=== PATIENT | female | born 1975 | race Caucasian/White ===

== ENCOUNTER 2019-06-12 18:41 | Inpatient (IN) | payer MEDICARE, MEDICAID ==
[2019-06-12] MEDS ORDERED: ONDANSETRON HCL INJ/PF 4 MG/2 ML SDV IV ONE (20:34)
[2019-06-12] MEDS ORDERED: NORMAL SALINE 1000 ML 1,000 ML IV ONE ×3 (20:34→22:51)
[2019-06-12 20:36] LABS: ALBUMIN 4.5 g/dL (3.5-5.0); ALKALINE PHOSPHATASE 147 U/L (38-126); ASPARTATE AMINO TRANSFERASE 33 U/L (14-36); BILIRUBIN,DIRECT 0.4 mg/dL (0.0-0.4); BILIRUBIN,TOTAL 2.4 mg/dL (0.2-1.3); BLOOD UREA NITROGEN 26 mg/dL (7-20); CALCIUM 9.9 mg/dL (8.4-10.2); TOTAL PROTEIN 6.8 g/dL (6.3-8.2)
[2019-06-12 20:38] LABS: HEMATOCRIT 40.7 % (36.0-47.0); HEMOGLOBIN 14.1 g/dL (12.0-15.5); MEAN CORPUSCULAR HEMOGLOBIN 32.4 pg (27.0-33.4); MEAN CORPUSCULAR HGB CONC 34.6 g/dL (32.0-36.0); MEAN CORPUSCULAR VOLUME 94 fl (80-97); PLATELET COUNT 260 10^3/uL (150-450); RED BLOOD COUNT 4.35 10^6/uL (3.72-5.28); RED CELL DISTRIBUTION WIDTH 12.9 % (11.5-14.0); WHITE BLOOD COUNT 26.5 10^3/uL (4.0-10.5)
[2019-06-12 20:42] LABS: CARBON DIOXIDE 11 mmol/L (22-30); CHLORIDE 91 mmol/L (98-107)
[2019-06-12 20:45] LABS: ANION GAP 27 (5-19)
[2019-06-12 20:48] LABS: GLUCOSE 664 mg/dL (75-110); POTASSIUM 6.1 mmol/L (3.6-5.0)
[2019-06-12 21:03] LABS: ABSOLUTE LYMPHOCYTES# (MANUAL) 0.8 10^3/uL (0.5-4.7); ABSOLUTE MONOCYTES # (MANUAL) 1.1 10^3/uL (0.1-1.4); BAND NEUTROPHILS % (MANUAL) 3 % (3-5); BASOPHILS % (MANUAL) 0 % (0-2); EOSINOPHILS % (MANUAL) 0 % (0-6); LYMPHOCYTES % (MANUAL) 2 % (13-45); MONOCYTES % (MANUAL) 4 % (3-13); SEGMENTED NEUTROPHILS % (MAN) 90 % (42-78); TOTAL CELLS COUNTED 100
[2019-06-12 21:05] LABS: BURR CELLS SLIGHT; POIKILOCYTOSIS SLIGHT; TOXIC GRANULATION SLIGHT; TOXIC VACUOLATION PRESENT
[2019-06-12 21:06] LABS: PLATELET COMMENT ADEQUATE; TEAR DROP CELLS SLIGHT
[2019-06-12 22:26] LABS: VENOUS BLOOD BASE EXCESS -19.8 mmol/L; VENOUS BLOOD HCO3 8.5 mmol/L (20-32); VENOUS BLOOD PCO2 28.1 mmHg (35-63)
--- NOTE | 2019-06-12 22:27 | ER Document Report ---
ED General - General Chief Complaint: High Blood Sugar Stated Complaint: NAUSEA,VOMITING,ABDOMINAL PAIN Time Seen by Provider: 06/12/19 22:10 TRAVEL OUTSIDE OF THE [place] IN LAST 30 DAYS: No - HPI Notes: Patient is a 44-year-old female with a history of type 1 diabetes who presents to the emergency department for evaluation of vomiting and increasing blood sugar. She is here from out of town, traveling from the [place] area. She states this morning she started vomiting. Emesis is nonbloody, nonbilious. Her blood sugar started climbing. She started drinking fluids, but it did not seem to help, and she continued to have rising blood sugars. She developed some cramping abdominal pain. All of these are symptoms similar to when she has had DKA in the past. She has an insulin pump, states that seemed to have been functioning normally. She has been in DKA multiple times. - Related Data Allergies/Adverse Reactions: morphine Allergy (Verified 06/12/19 20:13) Home Medications: List reviewed, please see notes Past Medical History - General Information source: Patient - Social History Smoking Status: Never Smoker Chew tobacco use (# tins/day): No Frequency of alcohol use: Social Family History: Reviewed & Not Pertinent Patient has suicidal ideation: No Patient has homicidal ideation: No - Past Medical History Cardiac Medical History: Reports: Hx Hypercholesterolemia, Hx Hypertension Pulmonary Medical History: Reports: Hx Asthma Neurological Medical History: Reports: Hx Seizures, Other - Congenital deafness Endocrine Medical History: Reports: Hx Diabetes Mellitus Type 1 GI Medical History: Reports: Hx Gastritis Psychiatric Medical History: Reports: Hx Depression Past Surgical History: Reports: Hx Appendectomy Review of Systems - Review of Systems Constitutional: No symptoms reported EENT: No symptoms reported Cardiovascular: No symptoms reported Respiratory: No symptoms reported Gastrointestinal: See HPI Genitourinary: No symptoms reported Musculoskeletal: No symptoms reported Skin: No symptoms reported Neurological/Psychological: No symptoms reported Physical Exam - Vital signs Vitals: Temp Pulse Resp BP Pulse Ox 98.1 F 134 H 18 106/73 95 06/12/19 18:53 06/12/19 18:53 06/12/19 18:53 06/12/19 18:53 06/12/19 18:53 - Notes Notes: This is a 44-year-old female who appears her stated age in no acute distress. No Kussmaul respirations. Vital signs reviewed, please refer to chart. Head is normocephalic, atraumatic. Pupils equal round, reactive to light. Neck is supple without meningismus. Heart is tachycardic with normal S1, S2. Lungs are clear to auscultation bilaterally. Abdomen is soft, diffusely tender without rebound or guarding, normoactive bowel sounds throughout. Extremities without cyanosis, clubbing. Posterior calves are nontender. Peripheral pulses are equal . Skin is warm and dry. Patient is awake, alert, neurological exam is nonfocal. Course - Re-evaluation Re-evalutation: 06/12/19 22:27 Patient presents emergency department for evaluation. She laboratory investigations as initially ordered based on protocols. She was found to be acidotic, with a low bicarb, significant anion gap, and elevated blood glucose. She was given further IV fluids. She was started on an insulin drip. Currently, patient's blood pressure is 87/46, heart rate of 118. We will continue to monitor for response. 06/12/19 22:55 Venous pH reveal significant acidosis. The patient is in DKA. Her pressures have been borderline but stable, heart rate is improving. I spoke with Dr. Sanchez about this patient. He agrees with admission. - Vital Signs Vital signs: Temp Pulse Resp BP Pulse Ox 98.1 F 134 H 18 106/73 95 06/12/19 18:53 06/12/19 18:53 06/12/19 18:53 06/12/19 18:53 06/12/19 18:53 - Laboratory Result Diagrams: 06/12/19 20:08 06/12/19 20:08 Laboratory results interpreted by me: 06/12/19 06/12/19 06/12/19 20:08 20:08 22:17 WBC 26.5 H Seg Neuts % (Manual) 90 H Lymphocytes % (Manual) 2 L Abs Neuts (Manual) 24.6 H VBG pH 7.10 L* VBG pCO2 28.1 L VBG HCO3 8.5 L Sodium 129.2 L Potassium 6.1 H* Chloride 91 L Carbon Dioxide 11 L Anion Gap 27 H BUN 26 H Creatinine 1.34 H Est GFR ( Amer) 52 L Est GFR (MDRD) Non-Af 43 L Glucose 664 H* Total Bilirubin 2.4 H Alkaline Phosphatase 147 H Discharge - Discharge Clinical Impression: DKA, type 1 Qualifiers: Diabetes mellitus complication detail: without coma Qualified Code(s): E10.10 - Type 1 diabetes mellitus with ketoacidosis without coma Condition: Stable Disposition: HOME, SELF-CARE Admitting Provider: Daniel (Hospitalist) Unit Admitted: [facility]
[2019-06-12 22:32] LABS: VENOUS BLOOD PH 7.1 (7.30-7.42)
--- NOTE | 2019-06-12 22:51 | EKG REPORT ---
SEVERITY:- BORDERLINE ECG - SINUS TACHYCARDIA IVCD, NONSPECIFIC : Confirmed by: Shailesh Gutierrez MD 12-Jun-2019 22:51:27
[2019-06-12] MEDS ORDERED: NORMAL SALINE 100 ML with INSULIN REGULAR, HUMAN 100 UNIT IV PRN ×2 (22:55)
[2019-06-12] MEDS ORDERED: DEXTROSE 40% GEL 15 GM TUBE PO PRN ×2 (22:55)
[2019-06-12] MEDS ORDERED: GLUCAGON,HUMAN RECOMB 1 MG INJ IM PRN (22:55)
[2019-06-12] MEDS ORDERED: DEXTROSE 50%-WATER 25 GM/50 ML DISP.SYRIN IV PRN ×2 (22:55)
[2019-06-12] MEDS: INSULIN REG, HUMAN 100 UNIT/ML 3 ML VIAL (PYX) IV ONE ×2 (23:17→23:22)
[2019-06-12] MEDS ORDERED: PROMETHAZINE HCL INJ 25 MG/1 ML VIAL IV PRN (23:19)
[2019-06-12] MEDS ORDERED: MAGNESIUM HYDROXIDE SUSP 30 ML UDCUP PO PRN (23:19)
[2019-06-12] MEDS ORDERED: MAG HYDROX/AL HYDROX/SIMETH SUSP 30 ML UDCUP PO PRN (23:19)
[2019-06-12] MEDS ORDERED: LORAZEPAM INJ 2 MG/1 ML VIAL IV PRN (23:24)
[2019-06-12] MEDS ORDERED: ACETAMINOPHEN 325 MG TABLET PO PRN (23:24)
[2019-06-12] MEDS ORDERED: MELATONIN 5 MG TABLET PO PRN (23:24)
[2019-06-12] MEDS ORDERED: DIAZEPAM INJ 10 MG/2 ML DISP.SYRIN IV PRN (23:28)
[2019-06-13 00:12] LABS: APPEARANCE,URINE CLEAR; BILIRUBIN,URINE NEGATIVE (NEGATIVE); COLOR,URINE YELLOW; GLUCOSE, URINE >=500 mg/dL (NEGATIVE); KETONES,URINE 80 mg/dL (NEGATIVE); LEUKOCYTE ESTERASE,URINE NEGATIVE (NEGATIVE); NITRITE,URINE NEGATIVE (NEGATIVE); PROTEIN,URINE 30 mg/dL (NEGATIVE); URINE SPECIFIC GRAVITY 1.016; UROBILINOGEN,URINE NEGATIVE mg/dL (<2.0)
[2019-06-13] MEDS: NORMAL SALINE 100 ML with INSULIN REGULAR, HUMAN 100 UNIT IV PRN ×4 (00:20→06:16)
[2019-06-13 00:38] LABS: BLOOD UREA NITROGEN 27 mg/dL (7-20)
[2019-06-13 00:43] LABS: CHLORIDE 95 mmol/L (98-107)
[2019-06-13 00:53] LABS: ANION GAP 28 (5-19); POTASSIUM 4.8 mmol/L (3.6-5.0)
[2019-06-13 00:57] LABS: CARBON DIOXIDE 8 mmol/L (22-30); GLUCOSE 579 mg/dL (75-110)
[2019-06-13] MEDS ORDERED: SODIUM BICARBONATE 8.4% INJ 50 MEQ/50 ML DISP.SYRIN ONE ×5 (01:04→04:31)
[2019-06-13] MEDS: RINGERS SOLUTION,LACTATED 1,000 ML IV PRN ×3 (01:24→06:42)
[2019-06-13] MEDS: DEXTROSE 5%-WATER 1000 ML 1,000 ML with SODIUM BICARBONATE 150 MEQ IV PRN ×6 (01:24→06:42)
[2019-06-13] MEDS ORDERED: INFLUENZA QUAD (6MOS+) 2019-20 VAC 0.5 ML SYR IM ONE (01:30)
--- NOTE | 2019-06-13 03:12 | PDOC H&P ---
History of Present Illness Admission Date/PCP: 06/12/2019 22:54 No local PCP Patient complains of: Vomiting History of Present Illness: LORRAINE DIANE is a 44 year old female who presented to the emergency room with acute vomiting. The patient admits developing severe nausea and vomiting this morning, that has persisted throughout the day and has been accompanied by intermittent crampy abdominal pains and associated with persistent rising of her blood sugar. Patient attempted to drink fluids to try to help decrease her blood sugar and keep her from going into diabetic ketoacidosis however she noted that despite her efforts drinking fluids her blood sugar continued to rise. She denies other associated or accompanying signs and symptoms. She has a type I diabetic and uses an insulin pump for her diabetic control. She admits numerous prior similar episodes with DKA. She has not identified any aggravating or ameliorating factors for her vomiting. In the emergency room she was found to have diabetic ketoacidosis with a glucose of 664 a bicarbonate of 11 and anion gap of 27 and a venous pH of 7.10. She was also noted to be tachycardic in the 140s and mildly hypotensive in the 80s and 90s. She was treated with IV fluids and demonstrated significant improvement with her tachycardia reduced to the 120 level and her blood pressure running in the high 90s. She was subsequently admitted to the hospital for further evaluation and treatment. Past Medical History Cardiac Medical History: Reports: Hyperlipidema, Hypertension Denies: Coronary Artery Disease, Myocardial Infarction Pulmonary Medical History: Reports: Asthma Denies: Chronic Obstructive Pulmonary Disease (COPD) EENT Medical History: Reports: Eyes - required childhood eye surgeries, Ears - Congenital deafness Denies: Cataracts Neurological Medical History: Reports: Seizures - Seizure disorder, Other - Congenital deafness Endocrine Medical History: Reports: Diabetes Mellitus Type 1 Denies: Diabetes Mellitus Type 2, Hyperthyroidism, Hypothyroidism, Obesity Renal/ Medical History: Denies: Chronic Kidney Disease, Nephrolithiasis Malignancy Medical History: Reports: None GI Medical History: Denies: Cirrhosis, Crohn's Disease, Hepatitis, Ulcerative Colitis Musculoskeltal Medical History: Denies: Arthritis, Gout Skin Medical History: Denies: Eczema, Psoriasis Psychiatric Medical History: Reports: Depression Denies: Alcohol Dependency, Substance Abuse, Tobacco Dependency Traumatic Medical History: Reports: None Hematology: Denies: Anemia, Bleeding Tendencies Infectious Medical History: Reports: None Past Surgical History Past Surgical History: Reports: Appendectomy, Orthopedic Surgery - discectomy, Other - childhood eye surgeries, lumpectomy, EGD's Social History Information Source: Patient Lives with: Alone Smoking Status: Never Smoker Electronic Cigarette use?: No Frequency of Alcohol Use: Rare Hx Recreational Drug Use: No Drugs: None Hx Prescription Drug Abuse: No - Advance Directive Resuscitation Status: Full Code Surrogate healthcare decision maker:: Lola Rollins Family History Family History: Malignancy - Breast cancer. denies: CAD, DM, Hypertension Parental Family History Reviewed: Yes Children Family History Reviewed: No Sibling(s) Family History Reviewed.: Yes Medication/Allergy Allergies/Adverse Reactions: morphine Allergy (Verified 06/12/19 20:13) Review of Systems Constitutional: ABSENT: chills, fever(s) Eyes: ABSENT: visual disturbances, other - Eye pain Ears: ABSENT: hearing changes, other - Ear pain Nose, Mouth, and Throat: ABSENT: headache(s), mouth pain, sore throat Cardiovascular: ABSENT: chest pain, palpitations Respiratory: ABSENT: cough, dyspnea Gastrointestinal: PRESENT: as per HPI, abdominal pain, nausea, vomiting. ABSENT: constipation, diarrhea, hematemesis Genitourinary: ABSENT: dysuria, hematuria Musculoskeletal: ABSENT: back pain, joint swelling, muscle weakness Integumentary: ABSENT: pruritus, rash Neurological: ABSENT: confusion, convulsions, focal weakness, memory loss, syncope Psychiatric: ABSENT: anxiety, depression Endocrine: ABSENT: cold intolerance, heat intolerance, polydipsia, polyphagia, polyuria Hematologic/Lymphatic: ABSENT: easy bleeding, easy bruising Allergic/Immunologic: ABSENT: seasonal rhinorrhea Physical Exam Vital Signs: Temp Pulse Resp BP Pulse Ox 98.1 F 134 H 18 106/73 95 06/12/19 18:53 06/12/19 18:53 06/12/19 18:53 06/12/19 18:53 06/12/19 18:53 Intake & Output 06/10/19 06/11/19 06/12/19 23:59 23:59 23:59 Intake Total 1000 Balance 1000 Weight 56.9 kg General appearance: PRESENT: no acute distress, cooperative Head exam: PRESENT: atraumatic, normocephalic Eye exam: PRESENT: conjunctiva pink. ABSENT: conjunctival injection, scleral icterus Ear exam: PRESENT: normal external ear exam. ABSENT: bleeding, drainage Mouth exam: PRESENT: dry mucosa, neck supple Neck exam: ABSENT: thyromegaly, tracheal deviation Respiratory exam: PRESENT: clear to auscultation chloe, symmetrical, unlabored Cardiovascular exam: PRESENT: RRR, tachycardia. ABSENT: clicks, gallop, rubs Pulses: PRESENT: normal radial pulses, normal dorsalis pedis pul Vascular exam: PRESENT: normal capillary refill. ABSENT: pallor GI/Abdominal exam: PRESENT: normal bowel sounds, soft Rectal exam: PRESENT: deferred Extremities exam: ABSENT: joint swelling, pedal edema Musculoskeletal exam: ABSENT: deformity, dislocation Neurological exam: PRESENT: alert, oriented to person, oriented to place, oriented to time, oriented to situation, motor sensory deficit - Dependent on hearing aids Psychiatric exam: PRESENT: appropriate affect, normal mood Skin exam: PRESENT: dry, intact, warm. ABSENT: jaundice, rash, urticaria Results Laboratory Results: 06/12/19 20:08 06/12/19 20:08 06/12/19 06/12/19 06/12/19 20:08 20:08 22:17 WBC 26.5 H RBC 4.35 Hgb 14.1 Hct 40.7 MCV 94 MCH 32.4 MCHC 34.6 RDW 12.9 Plt Count 260 Seg Neutrophils % Not Reportable VBG pH 7.10 L* VBG pCO2 28.1 L VBG HCO3 8.5 L VBG Base Excess -19.8 Sodium 129.2 L Potassium 6.1 H* Chloride 91 L Carbon Dioxide 11 L Anion Gap 27 H BUN 26 H Creatinine 1.34 H Est GFR ( Amer) 52 L Glucose 664 H* Calcium 9.9 Total Bilirubin 2.4 H AST 33 Alkaline Phosphatase 147 H Total Protein 6.8 Albumin 4.5 Assessment and Plan - Diagnosis (1) Diabetic ketoacidosis without coma associated with type 1 diabetes mellitus Is this a current diagnosis for this admission?: Yes (2) Hypotension due to hypovolemia Is this a current diagnosis for this admission?: Yes (3) Tachycardia Is this a current diagnosis for this admission?: Yes (4) Nausea & vomiting Qualifiers: Vomiting type: unspecified Vomiting Intractability: non-intractable Qualified Code(s): R11.2 - Nausea with vomiting, unspecified Is this a current diagnosis for this admission?: Yes (5) Seizure disorder Is this a current diagnosis for this admission?: Yes (6) Congenital deafness Is this a current diagnosis for this admission?: Yes - Plan Summary Summary: Patient will be admitted to [facility] where she will receive routine supportive and symptomatic cares. She will be treated with a insulin infusion and a bicarbonate infusion as well as high-volume IV fluids with electrolyte repletion as appropriate. She will use Phenergan 12.5 mg IV every 4 hours as needed for nausea and vomiting. She will use Ativan 1 mg IV every 4 hours as needed for anxiety or restlessness. She will receive a diabetic diet. She will return to use of her insulin pump as per her usual course once her ketoacidosis has resolved. She will be continued on her usual medications as appropriate and per formulary availability. - Time Time Spent with patient: 15-24 minutes Medications reviewed and adjusted accordingly: Yes Anticipated discharge: Home Within: within 48 hours - Inpatient Certification Based on my medical assessment, after consideration of the patient's comorbidities, presenting symptoms, or acuity I expect that the services needed warrant INPATIENT care.: Yes I certify that my determination is in accordance with my understanding of Medicare's requirements for reasonable and necessary INPATIENT services [42 CFR 412.3e].: Yes Medical Necessity: Need Close Monitoring Due to Risk of Patient Decompensation, Need For IV Fluids, Need For Continuous Telemetry Monitoring, Risk of Complication if Not Cared For in Hospital
[2019-06-13] MEDS ORDERED: INSULIN REG, HUMAN 100 UNIT/ML 3 ML VIAL IV ONE (04:00)
[2019-06-13 04:38] LABS: ANION GAP 19 (5-19); BLOOD UREA NITROGEN 26 mg/dL (7-20); CARBON DIOXIDE 16 mmol/L (22-30); CHLORIDE 95 mmol/L (98-107); POTASSIUM 4.3 mmol/L (3.6-5.0)
[2019-06-13 05:00] LABS: GLUCOSE 575 mg/dL (75-110)
[2019-06-13] MEDS: HEPARIN SOD (PORCINE) 5,000 UNIT/ML 1 ML VIAL SUBCUT SCH ×3 (05:08→21:48)
[2019-06-13] MEDS ORDERED: INSULIN REG, HUMAN 100 UNIT/ML 3 ML VIAL (PYX) ONE (06:11)
[2019-06-13 08:05] LABS: HEMATOCRIT 31.4 % (36.0-47.0); MEAN CORPUSCULAR HEMOGLOBIN 32.9 pg (27.0-33.4); PLATELET COUNT 160 10^3/uL (150-450); RED BLOOD COUNT 3.58 10^6/uL (3.72-5.28)
[2019-06-13 08:16] LABS: ANION GAP 6 (5-19); BLOOD UREA NITROGEN 22 mg/dL (7-20); CALCIUM 7.8 mg/dL (8.4-10.2); CHLORIDE 91 mmol/L (98-107)
[2019-06-13 08:22] LABS: MEAN CORPUSCULAR HGB CONC 37.5 g/dL (32.0-36.0); MEAN CORPUSCULAR VOLUME 88 fl (80-97)
[2019-06-13 08:23] LABS: HEMOGLOBIN 11.7 g/dL (12.0-15.5)
[2019-06-13 08:32] LABS: CARBON DIOXIDE 36 mmol/L (22-30); GLUCOSE 399 mg/dL (75-110); POTASSIUM 3.2 mmol/L (3.6-5.0)
[2019-06-13] MEDS: DOCUSATE SODIUM 100 MG CAPSULE PO SCH ×2 (09:47→17:00)
[2019-06-13] MEDS: POTASSI CL 20 MEQ/NS 1L 1000 ML IV PRN ×2 (09:47→17:05)
[2019-06-13] MEDS ORDERED: POTASSIUM CHLORIDE 10 MEQ TABLET.ER PO ONE (12:00)
[2019-06-13] MEDS ORDERED: DEXTROSE 40% GEL 15 GM TUBE PO PRN (12:00)
[2019-06-13] MEDS ORDERED: DEXTROSE 50%-WATER SYRINGE 25 GM/50 ML DOSE IV PRN (12:00)
[2019-06-13] MEDS ORDERED: GLUCAGON,HUMAN RECOMB 1 MG INJ IM PRN (12:00)
[2019-06-13] MEDS ORDERED: DEXTROSE 50%-WATER SYRINGE 12.5 GM/25 ML DOSE IV PRN (12:00)
[2019-06-13] MEDS ORDERED: DEXTROSE 40% GEL 15 GM TUBE X 2 PO PRN (12:00)
[2019-06-13 12:33] LABS: ANION GAP 5 (5-19); BLOOD UREA NITROGEN 18 mg/dL (7-20); CALCIUM 8.4 mg/dL (8.4-10.2); CARBON DIOXIDE 37 mmol/L (22-30); CHLORIDE 96 mmol/L (98-107); GLUCOSE 106 mg/dL (75-110); POTASSIUM 3.1 mmol/L (3.6-5.0)
--- NOTE | 2019-06-13 12:50 | PDOC PROGRESS REPORT ---
Subjective Progress Note for:: 06/13/19 Subjective:: 06/13/2019: Patient seen and examined. She is feeling better. No nausea or vomiting. DKA has resolved. Heart rate is better. Reason For Visit: DIABETIC KETOACIDOSIS Physical Exam Vital Signs: Temp Pulse Resp BP Pulse Ox 98.5 F 102 H 18 94/54 L 93 06/13/19 11:06 06/13/19 11:06 06/13/19 11:06 06/13/19 11:06 06/13/19 11:06 Intake & Output 06/12/19 06/13/19 06/14/19 06:59 06:59 06:59 Intake Total 5942 3210 Output Total 1350 Balance 4592 3210 Weight 131 lb 6.328 oz Exam: Patient is no acute distress Alert oriented to time place person No anxiety or depression Head: atraumatic normocephalic Pupils: are equal reactive Neck: is supple and trachea is central no lymphadenopathy No pharyngeal erythema or exudates Heart: Regular rate and rhythm, no peripheral edema Lungs: clear to auscultation, no respiratory distress Abdomen: nontender nondistended Neurological exam: unremarkable Musculoskeletal: No joint swelling or effusion chronic lower back pain and tenderness No suicidal or homicidal ideation Results Laboratory Results: 06/13/19 07:50 06/13/19 11:41 06/12/19 06/12/19 06/12/19 20:08 20:08 22:17 WBC 26.5 H RBC 4.35 Hgb 14.1 Hct 40.7 MCV 94 MCH 32.4 MCHC 34.6 RDW 12.9 Plt Count 260 Seg Neutrophils % Not Reportable VBG pH 7.10 L* VBG pCO2 28.1 L VBG HCO3 8.5 L VBG Base Excess -19.8 Sodium 129.2 L Potassium 6.1 H* Chloride 91 L Carbon Dioxide 11 L Anion Gap 27 H BUN 26 H Creatinine 1.34 H Est GFR ( Amer) 52 L Glucose 664 H* Calcium 9.9 Magnesium Total Bilirubin 2.4 H AST 33 Alkaline Phosphatase 147 H Total Protein 6.8 Albumin 4.5 TSH Urine Color Urine Appearance Urine pH Ur Specific [place] Urine Protein Urine Glucose (UA) Urine Ketones Urine Blood Urine Nitrite Ur Leukocyte Esterase Urine WBC (Auto) Urine RBC (Auto) 06/12/19 06/12/19 06/13/19 23:25 23:55 03:26 WBC RBC Hgb Hct MCV MCH MCHC RDW Plt Count Seg Neutrophils % VBG pH VBG pCO2 VBG HCO3 VBG Base Excess Sodium 130.9 L 129.9 L Potassium 4.8 D 4.3 Chloride 95 L 95 L Carbon Dioxide 8 L* 16 L Anion Gap 28 H 19 BUN 27 H 26 H Creatinine 1.27 H 1.05 Est GFR ( Amer) 56 L > 60 Glucose 579 H* 575 H* Calcium 9.0 8.0 L Magnesium Total Bilirubin AST Alkaline Phosphatase Total Protein Albumin TSH Urine Color YELLOW Urine Appearance CLEAR Urine pH 5.0 Ur Specific [place] 1.016 Urine Protein 30 H Urine Glucose (UA) >=500 H Urine Ketones 80 H Urine Blood MODERATE H Urine Nitrite NEGATIVE Ur Leukocyte Esterase NEGATIVE Urine WBC (Auto) 2 Urine RBC (Auto) 0 06/13/19 06/13/19 06/13/19 07:50 07:50 07:50 WBC 15.0 H RBC 3.58 L Hgb 11.7 L D Hct 31.4 L MCV 88 D MCH 32.9 MCHC 37.5 H RDW 13.0 Plt Count 160 Seg Neutrophils % VBG pH VBG pCO2 VBG HCO3 VBG Base Excess Sodium 133.2 L Potassium 3.2 L D Chloride 91 L Carbon Dioxide 36 H D Anion Gap 6 BUN 22 H Creatinine 0.91 Est GFR ( Amer) > 60 Glucose 399 H Calcium 7.8 L Magnesium 1.5 L Total Bilirubin AST Alkaline Phosphatase Total Protein Albumin TSH 0.63 Urine Color Urine Appearance Urine pH Ur Specific [place] Urine Protein Urine Glucose (UA) Urine Ketones Urine Blood Urine Nitrite Ur Leukocyte Esterase Urine WBC (Auto) Urine RBC (Auto) 06/13/19 11:41 WBC RBC Hgb Hct MCV MCH MCHC RDW Plt Count Seg Neutrophils % VBG pH VBG pCO2 VBG HCO3 VBG Base Excess Sodium 138.1 Potassium 3.1 L Chloride 96 L Carbon Dioxide 37 H Anion Gap 5 BUN 18 Creatinine 0.79 Est GFR ( Amer) > 60 Glucose 106 Calcium 8.4 Magnesium Total Bilirubin AST Alkaline Phosphatase Total Protein Albumin TSH Urine Color Urine Appearance Urine pH Ur Specific [place] Urine Protein Urine Glucose (UA) Urine Ketones Urine Blood Urine Nitrite Ur Leukocyte Esterase Urine WBC (Auto) Urine RBC (Auto) Assessment and Plan - Diagnosis (1) Diabetic ketoacidosis without coma associated with type 1 diabetes mellitus Is this a current diagnosis for this admission?: Yes Plan: DKA has resolved now. Switch to normal saline with potassium IV infusion. Switch to insulin sliding scale. Hemoglobin A1c 7.0. (2) Hypotension due to hypovolemia Is this a current diagnosis for this admission?: Yes Plan: Continue IV fluids. We will give bolus of 1 L of normal saline. (3) Nausea & vomiting Qualifiers: Vomiting type: unspecified Vomiting Intractability: non-intractable Qualified Code(s): R11.2 - Nausea with vomiting, unspecified Is this a current diagnosis for this admission?: Yes Plan: Resolved. Antiemetics as needed. (4) Seizure disorder Is this a current diagnosis for this admission?: Yes Plan: Follow-up outpatient. No seizure activity. (5) Tachycardia Is this a current diagnosis for this admission?: Yes Plan: Improved. Monitor. (6) Congenital deafness Is this a current diagnosis for this admission?: Yes Plan: Patient has hearing aid. - Plan Summary Summary: Patient will be admitted to [facility] where she will receive routine supportive and symptomatic cares. She will be treated with a insulin infusion and a bicarbonate infusion as well as high-volume IV fluids with electrolyte repletion as appropriate. She will use Phenergan 12.5 mg IV every 4 hours as needed for nausea and vomiting. She will use Ativan 1 mg IV every 4 hours as needed for a nxiety or restlessness. She will receive a diabetic diet. She will return to use of her insulin pump as per her usual course once her ketoacidosis has resolved. She will be continued on her usual medications as appropriate and per formulary availability.
[2019-06-13] MEDS: BACLOFEN 10 MG TABLET PO SCH ×2 (13:45→21:48)
[2019-06-13] MEDS ORDERED: ALBUTEROL SULFATE HFA (90 MCG/PUFF) 200 PUFF/8.5 GM MDI IH PRN (14:00)
[2019-06-13 15:37] LABS: ANION GAP 6 (5-19); BLOOD UREA NITROGEN 17 mg/dL (7-20); CARBON DIOXIDE 34 mmol/L (22-30); CHLORIDE 96 mmol/L (98-107); GLUCOSE 115 mg/dL (75-110); POTASSIUM 3.8 mmol/L (3.6-5.0)
[2019-06-13] MEDS: METFORMIN HCL 500 MG TABLET PO SCH (17:00)
[2019-06-13] MEDS: INSULIN LISPRO 100 UNIT/ML 3 ML VIAL SUBCUT SCH ×2 (17:00→21:49)
[2019-06-13] MEDS ORDERED: INSULIN GLARGINE,HUM.REC.ANLOG 1,000 UNIT/10 ML VIAL (PYX) SUBCUT PRN ×2 (18:45→19:00)
[2019-06-13 20:38] LABS: ANION GAP 7 (5-19); BLOOD UREA NITROGEN 20 mg/dL (7-20); CALCIUM 7.7 mg/dL (8.4-10.2); CARBON DIOXIDE 30 mmol/L (22-30); CHLORIDE 97 mmol/L (98-107); GLUCOSE 298 mg/dL (75-110); POTASSIUM 4.3 mmol/L (3.6-5.0)
[2019-06-13] MEDS ORDERED: (PENDING PHARMACY ID) (Suvorexant [Belsomra] 15 MG) PO SCH (22:00)
[2019-06-13] MEDS ORDERED: (PENDING PHARMACY ID) (Risperidone [Risperdal] 3 MG) PO SCH (22:00)
[2019-06-13] MEDS ORDERED: DULOXETINE HCL 30 MG CAPSULE.DR PO SCH (22:00)
[2019-06-13] MEDS ORDERED: RISPERIDONE 1 MG TABLET PO SCH (22:00)
[2019-06-13] MEDS ORDERED: ATORVASTATIN CALCIUM 20 MG TABLET PO SCH (22:00)
[2019-06-13] MEDS ORDERED: INSULIN GLARGINE,HUM.REC.ANLOG 1,000 UNIT/10 ML VIAL SUBCUT SCH (22:00)
[2019-06-14 00:24] LABS: ANION GAP 6 (5-19); BLOOD UREA NITROGEN 17 mg/dL (7-20); CARBON DIOXIDE 28 mmol/L (22-30); CHLORIDE 100 mmol/L (98-107); GLUCOSE 279 mg/dL (75-110)
[2019-06-14 05:39] LABS: BLOOD UREA NITROGEN 15 mg/dL (7-20); CALCIUM 7.7 mg/dL (8.4-10.2); CARBON DIOXIDE 31 mmol/L (22-30); CHLORIDE 103 mmol/L (98-107); GLUCOSE 170 mg/dL (75-110)
[2019-06-14 05:50] LABS: ANION GAP 4 (5-19)
[2019-06-14] MEDS: BACLOFEN 10 MG TABLET PO SCH (05:58)
[2019-06-14] MEDS: POTASSI CL 20 MEQ/NS 1L 1000 ML IV PRN (05:58)
[2019-06-14] MEDS: HEPARIN SOD (PORCINE) 5,000 UNIT/ML 1 ML VIAL SUBCUT SCH (05:59)
[2019-06-14] MEDS ORDERED: PANTOPRAZOLE SODIUM 20 MG TABLET.DR PO SCH (06:00)
[2019-06-14] MEDS: METFORMIN HCL 500 MG TABLET PO SCH (08:05)
[2019-06-14] MEDS: INSULIN LISPRO 100 UNIT/ML 3 ML VIAL SUBCUT SCH (08:05)
[2019-06-14] MEDS: DOCUSATE SODIUM 100 MG CAPSULE PO SCH (09:19)
[2019-06-14] MEDS ORDERED: ASPIRIN 81 MG TABLET, ENT COATED PO SCH (10:00)
[2019-06-14 10:07] LABS: HEMATOCRIT 30.9 % (36.0-47.0); HEMOGLOBIN 11.4 g/dL (12.0-15.5); MEAN CORPUSCULAR HEMOGLOBIN 32.8 pg (27.0-33.4); MEAN CORPUSCULAR HGB CONC 36.7 g/dL (32.0-36.0); MEAN CORPUSCULAR VOLUME 89 fl (80-97); PLATELET COUNT 125 10^3/uL (150-450); RED BLOOD COUNT 3.46 10^6/uL (3.72-5.28); RED CELL DISTRIBUTION WIDTH 13.1 % (11.5-14.0); WHITE BLOOD COUNT 8.7 10^3/uL (4.0-10.5)
[2019-06-14 10:34] LABS: ANION GAP 5 (5-19); BLOOD UREA NITROGEN 13 mg/dL (7-20); CARBON DIOXIDE 28 mmol/L (22-30); CHLORIDE 104 mmol/L (98-107); GLUCOSE 271 mg/dL (75-110); POTASSIUM 4.4 mmol/L (3.6-5.0)
--- NOTE | 2019-06-14 10:57 | PDOC DISCHARGE SUMMARY ---
Impression - Admit/DC Date/PCP Admission Date/Primary Care Provider: 06/12/19 22:59 Discharge Date: 06/14/19 - Discharge Diagnosis (1) Diabetic ketoacidosis without coma associated with type 1 diabetes mellitus Is this a current diagnosis for this admission?: Yes (2) Hypotension due to hypovolemia Is this a current diagnosis for this admission?: Yes (3) Nausea & vomiting Is this a current diagnosis for this admission?: Yes (4) Seizure disorder Is this a current diagnosis for this admission?: Yes (5) Tachycardia Is this a current diagnosis for this admission?: Yes (6) Congenital deafness Is this a current diagnosis for this admission?: Yes - Assessment Summary: Patient will be admitted to [facility] where she will receive routine supportive and symptomatic cares. She will be treated with a insulin infusion and a bicarbonate infusion as well as high-volume IV fluids with electrolyte repletion as appropriate. She will use Phenergan 12.5 mg IV every 4 hours as needed for nausea and vomiting. She will use Ativan 1 mg IV every 4 hours as needed for anxiety or restlessness. She will receive a diabetic diet. She will return to use of her insulin pump as per her usual course once her ketoacidosis has resolved. She will be continued on her usual medications as appropriate and per formulary availability. - Additional Information Resuscitation Status: Full Code Prescriptions: Insulin Lispro [Humalog Insulin (Lispro) 100 unit/mL] 0 - 12 unit SUBCUT ACHS 30 Days #1 vial Insulin Glargine,Hum.rec.anlog [Lantus Insulin 100 Unit/1 ml 10 ml] 12 unit SUBCUT QHS 30 Days #1 vial Home Medications: Albuterol Sulfate [Proair HFA Inhalation Aerosol 8.5 gm MDI] 2 puff IH Q6HP PRN 06/13/19 Aspirin [Adult Low Dose Aspirin EC] 81 mg PO DAILY 06/13/19 Atorvastatin Calcium [Lipitor 20 mg Tablet] 20 mg PO QHS 06/13/19 Baclofen [Baclofen 10 mg Tablet] 10 mg PO Q8 06/13/19 Duloxetine HCl [Cymbalta] 60 mg PO Q12 06/13/19 Metformin HCl 500 mg PO Q12 06/13/19 Omeprazole 20 mg PO DAILY 06/13/19 Risperidone [Risperdal] 3 mg PO QHS 06/13/19 Suvorexant [Belsomra] 15 mg PO QHS 06/13/19 Insulin Glargine,Hum.rec.anlog [Lantus Insulin 100 Unit/1 ml 10 ml] 12 unit SUBCUT QHS 30 Days #1 vial 06/14/19 Insulin Lispro [Humalog Insulin (Lispro) 100 unit/mL] 0 - 12 unit SUBCUT ACHS 30 Days #1 vial 06/14/19 History of Present Illiness History of Present Illness: LORRAINE DIANE is a 44 year old female who presented to the emergency room with acute vomiting. The patient admits developing severe nausea and vomiting this morning, that has persisted throughout the day and has been accompanied by intermittent crampy abdominal pains and associated with persistent rising of her blood sugar. Patient attempted to drink fluids to try to help decrease her blood sugar and keep her from going into diabetic ketoacidosis however she noted that despite her efforts drinking fluids her blood sugar continued to rise. She denies other associated or accompanying signs and symptoms. She has a type I diabetic and uses an insulin pump for her diabetic control. She admits numerous prior similar episodes with DKA. She has not identified any aggravating or ameliorating factors for her vomiting. In the emergency room she was found to have diabetic ketoacidosis with a glucose of 664 a bicarbonate of 11 and anion gap of 27 and a venous pH of 7.10. She was also noted to be tachycardic in the 140s and mildly hypotensive in the 80s and 90s. She was treated with IV fluids and demonstrated significant improvement with her tachycardia reduced to the 120 level and her blood pressure running in the high 90s. She was subsequently admitted to the hospital for further evaluation and treatment. Hospital Course Hospital Course: (1) Diabetic ketoacidosis without coma associated with type 1 diabetes mellitus DKA has resolved with IV fluids and IV insulin drip. She was switched to Lantus and NovoLog scale. She is tolerating diet. No nausea or vomiting. Currently asymptomatic. Hemoglobin A1c 7.0. (2) Hypotension due to hypovolemia Resolved with IV fluids. (3) Nausea & vomiting Resolved. Received antiemetics as needed. (4) Seizure disorder Follow-up outpatient. No seizure activity. (5) Tachycardia Improved. (6) Congenital deafness Patient has hearing aid. She will be discharged with a prescription of Lantus and NovoLog scale. She is agreeable to discharge. She wants to go home. Physical Exam Vital Signs: Temp Pulse Resp BP Pulse Ox 98.6 F 110 H 16 101/50 L 90 L 06/14/19 07:52 06/14/19 07:52 06/14/19 07:52 06/14/19 07:52 06/14/19 07:52 Intake & Output 06/13/19 06/14/19 06/15/19 06:59 06:59 06:59 Intake Total 5942 6122 Output Total 1350 1300 Balance 4592 4822 Weight 131 lb 6.328 oz 138 lb 0.15 oz Exam: Patient is no acute distress Alert oriented to time place person No anxiety or depression Head: atraumatic normocephalic Pupils: are equal reactive Neck: is supple and trachea is central no lymphadenopathy No pharyngeal erythema or exudates Heart: Regular rate and rhythm, no peripheral edema Lungs: clear to auscultation, no respiratory distress Abdomen: nontender nondistended Neurological exam: unremarkable Musculoskeletal: No joint swelling or effusion chronic lower back pain and tenderness No suicidal or homicidal ideation Results Laboratory Results: WBC 8.7 10^3/uL (4.0-10.5) 06/14/19 09:35 RBC 3.46 10^6/uL (3.72-5.28) L 06/14/19 09:35 Hgb 11.4 g/dL (12.0-15.5) L 06/14/19 09:35 Hct 30.9 % (36.0-47.0) L 06/14/19 09:35 MCV 89 fl (80-97) 06/14/19 09:35 MCH 32.8 pg (27.0-33.4) 06/14/19 09:35 MCHC 36.7 g/dL (32.0-36.0) H 06/14/19 09:35 RDW 13.1 % (11.5-14.0) 06/14/19 09:35 Plt Count 125 10^3/uL (150-450) L 06/14/19 09:35 Lymph % (Auto) Not Reportable 06/12/19 20:08 [place] % (Auto) Not Reportable 06/12/19 20:08 Eos % (Auto) Not Reportable 06/12/19 20:08 Baso % (Auto) Not Reportable 06/12/19 20:08 Absolute Neuts (auto) Not Reportable 06/12/19 20:08 Absolute Lymphs (auto) Not Reportable 06/12/19 20:08 Absolute Monos (auto) Not Reportable 06/12/19 20:08 Absolute Eos (auto) Not Reportable 06/12/19 20:08 Absolute Basos (auto) Not Reportable 06/12/19 20:08 Total Counted 100 06/12/19 20:08 Seg Neutrophils % Not Reportable 06/12/19 20:08 Seg Neuts % (Manual) 90 % (42-78) H 06/12/19 20:08 Band Neutrophils % 3 % (3-5) 06/12/19 20:08 Lymphocytes % (Manual) 2 % (13-45) L 06/12/19 20:08 Atypical Lymphs % 1 % (0) 06/12/19 20:08 Monocytes % (Manual) 4 % (3-13) 06/12/19 20:08 Eosinophils % (Manual) 0 % (0-6) 06/12/19 20:08 Basophils % (Manual) 0 % (0-2) 06/12/19 20:08 Abs Neuts (Manual) 24.6 10^3/uL (1.7-8.2) H 06/12/19 20:08 Abs Lymphs (Manual) 0.8 10^3/uL (0.5-4.7) 06/12/19 20:08 Abs Monocytes (Manual) 1.1 10^3/uL (0.1-1.4) 06/12/19 20:08 Absolute Eos (Manual) 0.0 10^3/uL (0.0-0.6) 06/12/19 20:08 Abs Basophils (Manual) 0.0 10^3/uL (0.0-0.2) 06/12/19 20:08 Toxic Granulation SLIGHT 06/12/19 20:08 Toxic Vacuolation PRESENT 06/12/19 20:08 Platelet Comment ADEQUATE 06/12/19 20:08 Poikilocytosis SLIGHT 06/12/19 20:08 Tear Drop Cells SLIGHT 06/12/19 20:08 [place] Cells SLIGHT 06/12/19 20:08 VBG pH 7.10 (7.30-7.42) L* 06/12/19 22:17 VBG pCO2 28.1 mmHg (35-63) L 06/12/19 22:17 VBG HCO3 8.5 mmol/L (20-32) L 06/12/19 22:17 VBG Base Excess -19.8 mmol/L 06/12/19 22:17 Sodium 136.9 mmol/L (137-145) L 06/14/19 09:35 Potassium 4.4 mmol/L (3.6-5.0) 06/14/19 09:35 Chloride 104 mmol/L (98-107) 06/14/19 09:35 Carbon Dioxide 28 mmol/L (22-30) 06/14/19 09:35 Anion Gap 5 (5-19) 06/14/19 09:35 BUN 13 mg/dL (7-20) 06/14/19 09:35 Creatinine 0.70 mg/dL (0.52-1.25) 06/14/19 09:35 Est GFR ( Amer) > 60 (>60) 06/14/19 09:35 Est GFR (Non-Af Amer) Cancelled 06/13/19 11:41 Est GFR (MDRD) Non-Af > 60 (>60) 06/14/19 09:35 Glucose 271 mg/dL (75-110) H 06/14/19 09:35 POC Glucose 162 mg/dL (70-110) H 06/14/19 07:49 Hemoglobin A1c % 7.0 % (4.7-6.0) H 06/13/19 07:50 Calcium 8.0 mg/dL (8.4-10.2) L 06/14/19 09:35 Magnesium 1.6 mg/dL (1.6-2.3) 06/13/19 11:41 Total Bilirubin 2.4 mg/dL (0.2-1.3) H 06/12/19 20:08 Direct Bilirubin 0.4 mg/dL (0.0-0.4) 06/12/19 20:08 Neonat Total Bilirubin Not Reportable 06/12/19 20:08 Neonat Direct Bilirubin Not Reportable 06/12/19 20:08 Neonat Indirect Bili Not Reportable 06/12/19 20:08 AST 33 U/L (14-36) 06/12/19 20:08 ALT 25 U/L (<35) 06/12/19 20:08 Alkaline Phosphatase 147 U/L (38-126) H 06/12/19 20:08 Total Protein 6.8 g/dL (6.3-8.2) 06/12/19 20:08 Albumin 4.5 g/dL (3.5-5.0) 06/12/19 20:08 EGFR Cancelled 06/13/19 11:41 TSH 0.63 uIU/mL (0.47-4.68) 06/13/19 07:50 Urine Color YELLOW 06/12/19 23:25 Urine Appearance CLEAR 06/12/19 23:25 Urine pH 5.0 (5.0-9.0) 06/12/19 23:25 Ur Specific [place] 1.016 06/12/19 23:25 Urine Protein 30 mg/dL (NEGATIVE) H 06/12/19 23:25 Urine Glucose (UA) >=500 mg/dL (NEGATIVE) H 06/12/19 23:25 Urine Ketones 80 mg/dL (NEGATIVE) H 06/12/19 23:25 Urine Blood MODERATE (NEGATIVE) H 06/12/19 23:25 Urine Nitrite NEGATIVE (NEGATIVE) 06/12/19 23:25 Urine Bilirubin NEGATIVE (NEGATIVE) 06/12/19 23:25 Urine Urobilinogen NEGATIVE mg/dL (<2.0) 06/12/19 23:25 Ur Leukocyte Esterase NEGATIVE (NEGATIVE) 06/12/19 23:25 Urine WBC (Auto) 2 /HPF 06/12/19 23:25 Urine RBC (Auto) 0 /HPF 06/12/19 23:25 U Hyaline Cast (Auto) 4 /LPF 06/12/19 23:25 Urine Bacteria (Auto) TRACE /HPF 06/12/19 23:25 Squamous Epi Cells Auto 1 /HPF 06/12/19 23:25 Urine Mucus (Auto) RARE /LPF 06/12/19 23:25 Urine Ascorbic Acid NEGATIVE (NEGATIVE) 06/12/19 23:25 Plan Time Spent: Greater than 30 Minutes - 35 minutes Stroke Is this a Stroke Patient?: No Acute Heart Failure - Is this a Heart Failure Patient?: No
[2019-06-14 11:13] VITALS: BP 106/73
== END 2019-06-14 12:27 | disposition home or self-care (01) | DRG 639 ==
LOC: ER 18:41 → EH 22:59 → 3W 06-13 00:07
PROVIDERS: ADMIT Emergency Medicine; ATTEND Emergency Medicine
DX: E10.10 Type 1 diabetes mellitus with ketoacidosis without coma (principal); I95.9 Hypotension, unspecified; E86.1 Hypovolemia; G40.909 Epilepsy, unspecified, not intractable, without status epilepticus; H90.5 Unspecified sensorineural hearing loss; E78.5 Hyperlipidemia, unspecified; F32.9 Major depressive disorder, single episode, unspecified; E78.00 Pure hypercholesterolemia, unspecified; Z96.41 Presence of insulin pump (external) (internal); Z60.2 Problems related to living alone; Z80.3 Family history of malignant neoplasm of breast; Z88.6 Allergy status to analgesic agent
CPT/HCPCS: 36415; 80048; 80053; 81001; 82803; 82962; 83036; 83735; 84443; 85025; 85027; 93005; 93010; 96361; 96374; 99285; J1644; J1815; J2405; J3480; J3490; J7030; J7050; J7060; J7120